=== PATIENT | male | born 1990 | race Caucasian/White ===

== ENCOUNTER 2016-09-30 17:14 | Emergency (ER) | payer OTHER ==
[~2016-09-30] VITALS: Ht 170.2 cm; Wt 63.6 kg
[2016-09-30 17:14] VITALS: BP 134/84
[2016-09-30] MEDS ORDERED: PROM50TA4 PO (17:28)
[2016-09-30] MEDS ORDERED: GABA-283 PO (17:28)
[2016-09-30] MEDS ORDERED: HUMA100I3 SC (17:30)
[2016-09-30] MEDS ORDERED: OXYC1TAB16 PO (17:30)
[2016-09-30] MEDS ORDERED: INSULANT SC (17:30)
[2016-09-30] MEDS ORDERED: MIRT45TA PO (17:34)
[2016-09-30] MEDS ORDERED: PANTOPRAZOLE 40MG INJ (PROTONIX) (C9113) IV ONE (18:45)
[2016-09-30] MEDS ORDERED: HYDROmorphone HCL 1 MG/ML SYRINGE (J1170) IV PRN (18:45)
[2016-09-30] MEDS ORDERED: NS 1,000 ML IV ONE (18:45)
[2016-09-30] MEDS ORDERED: ONDANSETRON 4MG/2ML VIAL (J2405) IV ONE (18:45)
== END 2016-09-30 18:50 | disposition left against medical advice (07) ==
LOC: M ED 18:04
DX: R10.9 Unspecified abdominal pain (principal); E10.9 Type 1 diabetes mellitus without complications

== ENCOUNTER 2016-10-01 15:45 | Emergency (ER) | payer OTHER ==
[~2016-10-01] VITALS: Ht 170.2 cm; Wt 63.6 kg
[2016-10-01 15:45] VITALS: BP 130/79
[~2016-10-01 15:45] MED LIST: GABA-283 PO; HUMA100I3 SC; INSULANT SC; MIRT45TA PO; OXYC1TAB16 PO; PROM50TA4 PO
[2016-10-01 18:11] LABS: BASO % 0.7 % (0.0-1.0); EOS # 0.2 K/mm3 (0.0-0.50); LARGE UNSTAINED CELL # 0.1 K/mm3 (0.0-0.4); LARGE UNSTAINED CELL % 2.1 % (0.0-4.0); LYMPH # 1.6 K/mm3 (1.5-6.5); LYMPH % 27.8 % (24.0-44.0); MEAN CORPUSCULAR HEMOGLOBIN 29.1 pg (27.0-33.0); MEAN CORPUSCULAR HGB CONC 35.2 g/dl (32.0-36.5); MEAN CORPUSCULAR VOLUME 82.6 fl (80.0-96.0); MONO # 0.2 K/mm3 (0.0-0.8); MONO % 4.1 % (0.0-5.0); NEUTROPHILS # 3.6 K/mm3 (1.8-7.7); NEUTROPHILS % 62.3 % (36.0-66.0); PLATELET COUNT, AUTOMATED 233 k/mm3 (150-450); RED CELL DISTRIBUTION WIDTH 12.5 % (11.5-14.5); WHITE BLOOD COUNT 5.8 K/mm3 (4.0-10.0)
[2016-10-01 18:24] LABS: METHADONE URINE NEGATIVE (NEGATIVE)
[2016-10-01 18:28] LABS: ALBUMIN 4.2 GM/DL (3.2-5.2); ALBUMIN/GLOBULIN RATIO 1.14 (1.00-1.93); ALKALINE PHOSPHATASE 99 U/L (45-117); ALT/SGPT 32 U/L (12-78); AMYLASE 64 U/L (25-115); ANION GAP 8 MEQ/L (8-16); AST/SGOT 15 U/L (15-37); BILIRUBIN,TOTAL 1.4 MG/DL (0.2-1.0); BLOOD UREA NITROGEN 18 MG/DL (7-18); CALCIUM LEVEL 9.3 MG/DL (8.5-10.1); CARBON DIOXIDE LEVEL 27 MEQ/L (21-32); CHLORIDE LEVEL 96 MEQ/L (98-107); CREATININE FOR GFR 1.11 MG/DL (0.70-1.30); GLOMERULAR FILTRATION RATE > 60.0 (>60); POTASSIUM SERUM 4.3 MEQ/L (3.5-5.1); SODIUM LEVEL 131 MEQ/L (136-145); TOTAL PROTEIN 7.9 GM/DL (6.4-8.2)
[2016-10-01 18:36] LABS: GLUCOSE, FASTING 567 MG/DL (70-105)
== END 2016-10-01 20:22 | disposition left against medical advice (07) ==
LOC: M ED 15:45
DX: E10.65 Type 1 diabetes mellitus with hyperglycemia (principal); R10.9 Unspecified abdominal pain; L30.4 Erythema intertrigo